=== PATIENT | female | born 1980 | race Caucasian/White ===

== ENCOUNTER 2017-04-15 20:36 | Observation (INO) | payer OTHER ==
[2017-04-15] MEDS ORDERED: ASPIRIN 81 MG PO STA (20:51)
--- NOTE | 2017-04-15 20:58 | ED ---
Chest Pain HPI - General Chief Complaint: Chest Pain Stated Complaint: chest pain Time Seen by Provider: 04/15/17 20:38 Source: EMS Mode of arrival: EMS Limitations: no limitations - History of Present Illness Initial Comments: Patient presents with chest pain. Patient states she feels sharp stabbing intermittent chest pain left-sided chest for the past 12 hours. Patient states symptoms for started after she went outside to smoke. Patient states she is currently in rehab for crack cocaine use. Patient states she last used 6 days ago. Patient has regular tobacco smoker. Patient denies history of hypertension, high cholesterol, diabetes. Patient denies previous history of heart disease. Patient states she has had similar attacks of chest pain over the past 6 months. Patient states she was scheduled to have a stress test 6 months ago but she never went to completed. Has never had a stress test in her life. Patient doesn't have a history of anxiety. Patient states she was started on BuSpar yesterday which she takes ma'am worsened her chest pains. She does admit to history of COPD, not on oxygen. - Related Data Home Medications Medication Instructions Recorded Confirmed Acetaminophen Tab [Tylenol Tab] 650 mg PO Q4H PRN 04/15/17 04/15/17 Aspirin 325 mg PO ONETIME PRN 04/15/17 04/15/17 Chlorpheniramine Maleate 4 mg PO Q4H PRN 04/15/17 04/15/17 Ibuprofen [Motrin] 600 mg PO Q6HR PRN 04/15/17 04/15/17 Multivitamins, Thera [Multivitamin 1 tab PO DAILY 04/15/17 04/15/17 (formulary)] Nicotine 21Mg/24Hr Patch [Habitrol 1 patch TRANSDERM DAILY@0630 04/15/17 21Mg/24Hr Patch] OLANZapine [ZyPREXA] 5 mg PO BID@0630,1730 04/15/17 04/15/17 Thiamine [Vitamin B-1] 100 mg PO DAILY 04/15/17 04/15/17 Topiramate [Topamax] 25 mg PO BID@0600,1730 04/15/17 04/15/17 busPIRone HCl [Buspar] 10 mg PO TID PRN 04/15/17 04/15/17 cloNIDine HCL [Catapres] 0.1 - 0.3 mg PO Q4H PRN 04/15/17 04/15/17 traZODone HCL 50 - 150 mg PO HS 04/15/17 04/15/17 Allergies Allergy/AdvReac Type Severity Reaction Status Date / Time No Known Allergies Allergy Verified 04/15/17 20:58 Review of Systems ROS Statement: Those systems with pertinent positive or pertinent negative responses have been documented in the HPI. ROS Other: All systems not noted in ROS Statement are negative. Constitutional: Denies: fever, chills, weakness Eyes: Denies: vision change ENT: Denies: congestion Respiratory: Denies: cough, dyspnea, wheezes Cardiovascular: Reports: chest pain. Denies: palpitations, dyspnea on exertion , edema, syncope Endocrine: Denies: fatigue Gastrointestinal: Denies: abdominal pain, nausea, vomiting Genitourinary: Denies: urgency, dysuria, frequency, hematuria Musculoskeletal: Denies: back pain Skin: Denies: rash, lesions, change in color Neurological: Denies: headache Psychiatric: Reports: anxiety Past Medical History Past Medical History: COPD History of Any Multi-Drug Resistant Organisms: None Reported Past Surgical History: Adenoidectomy, Tonsillectomy Additional Past Surgical History / Comment(s): foot surgery, Past Psychological History: Anxiety Smoking Status: Current every day smoker Past Alcohol Use History: Heavy Past Drug Use History: Cocaine General Exam - General Exam Comments Initial Comments: Sitting up in bed. No distress. Conversing normally. pleasant. Appears mildly anxious Limitations: no limitations General appearance: alert, in no apparent distress Head exam: Present: atraumatic, normocephalic Eye exam: Present: normal appearance, PERRL, EOMI ENT exam: Present: mucous membranes moist Neck exam: Present: normal inspection Respiratory exam: Present: normal lung sounds bilaterally. Absent: respiratory distress, wheezes, rales, rhonchi, stridor, chest wall tenderness, accessory muscle use, decreased breath sounds, prolonged expiratory Cardiovascular Exam: Present: regular rate, normal rhythm GI/Abdominal exam: Present: soft. Absent: distended, tenderness, guarding, rebound, rigid Extremities exam: Present: other (No gross deformities of the extremities) Back exam: Present: normal inspection Neurological exam: Present: alert, oriented X3 Psychiatric exam: Present: anxious Skin exam: Present: warm, dry, intact, normal color. Absent: rash, cyanosis, diaphoretic, erythema Course Vital Signs 04/15/17 20:39 Temperature 97.7 F Pulse Rate 79 Respiratory 18 Rate Blood Pressure 128/60 O2 Sat by Pulse 97 Oximetry Chest Pain MDM - MDM Aspirin 324 given EKG normal sinus rhythm, heart rate 67, QTc 437 negative Troponin negative Patient reevaluated, chest pain-free. Plan for cardiac observation to trying troponin and possible stress test given patient's risk factors including smoking , repeated episodes of chest pain at rest, history of cocaine use. Spoke with Dr. Oliver, agrees with observation. Will admit observation at this time. Disposition Clinical Impression: Unstable angina Disposition: ADMITTED IP TO THIS HOSP Condition: Good Referrals: None,Stated [Primary Care Provider] - 1-2 days
[2017-04-15 21:19] LABS: Appearance,Urine Clear (Clear); Bilirubin,Urine Negative (Negative); Blood,Urine Negative (Negative); Color,Urine Light Yellow; Glucose,Urine (UA) Negative (Negative); Ketones,Urine Negative (Negative); Leukocyte Esterase,Urine Negative (Negative); Nitrite,Urine Negative (Negative); Protein,Urine Negative (Negative); Specific Gravity,Urine 1.011 (1.001-1.035); Urobilinogen,Urine <2.0 mg/dL (<2.0)
[2017-04-15 21:39] LABS: Basophils % (A) 0 %; Eosinophils # (A) 0.1 k/uL (0-0.7); Eosinophils % (A) 2 %; HGB 12.6 gm/dL (11.4-16.0); Lymphocytes # (A) 2.5 k/uL (1.0-4.8); Lymphocytes % (A) 38 %; MCH 31.4 pg (25.0-35.0); MCHC 34.9 g/dL (31.0-37.0); Mean Platelet Volume 8.8; Monocytes # (A) 0.4 k/uL (0-1.0); Monocytes % (A) 6 %; Neutrophils # (A) 3.3 k/uL (1.3-7.7); Neutrophils % (A) 51 %; Platelet Count 187 k/uL (150-450); RDW 12.2 % (11.5-15.5); WBC 6.4 k/uL (3.8-10.6)
[2017-04-15 21:47] LABS: Anion Gap 8 mmol/L; Blood Urea Nitrogen 13 mg/dL (7-17); Calcium 9.2 mg/dL (8.4-10.2); Carbon Dioxide 27 mmol/L (22-30); Chloride 107 mmol/L (98-107); Glucose 98 mg/dL (74-99); Magnesium 1.7 mg/dL (1.6-2.3); Potassium 3.9 mmol/L (3.5-5.1); Sodium 142 mmol/L (137-145)
--- NOTE | 2017-04-15 21:53 | XR ---
EXAMINATION TYPE: XR chest 2V DATE OF EXAM: 04/15/2017 COMPARISON: NONE HISTORY: Left arm pain and chest numbness TECHNIQUE: Frontal and lateral views of the chest are obtained. FINDINGS: There is no focal air space opacity, pleural effusion, or pneumothorax seen. The cardiac silhouette size is within normal limits. The osseous structures are intact. IMPRESSION: No acute cardiopulmonary process.
[2017-04-15 22:01] LABS: Partial Thromboplastin Time 22.7 sec (22.0-30.0); Prothrombin Time 10.1 sec (9.0-12.0)
[2017-04-15] MEDS ORDERED: NITROGLYCERIN SL TABS 0.4 MG TAB SUBLINGUAL PRN (22:38)
[2017-04-16] MEDS ORDERED: busPIRone HCl 10 MG TAB PO PRN (00:38)
[2017-04-16] MEDS ORDERED: traZODone HCL 50 MG TAB PO SCH (00:45)
[2017-04-16 03:50] LABS: Cholesterol 153 mg/dL (<200); HDL Cholesterol 64 mg/dL (40-60); LDL Cholesterol,Calculated 61 mg/dL (0-99); Triglycerides 138 mg/dL (<150)
[2017-04-16 07:44] VITALS: RESP 16
[2017-04-16] MEDS ORDERED: ASPIRIN 325 MG TAB PO SCH (09:00)
[2017-04-16] MEDS ORDERED: ASPIRIN 81 MG PO SCH (09:00)
[2017-04-16 09:07] VITALS: PULSE 72
[2017-04-16 11:45] VITALS: BP 91/47; TEMP 98.2
--- NOTE | 2017-04-16 13:07 | P.CRDCN ---
History of Present Illness Consult date: 04/16/17 Consult reason: chest pain History of present illness: Mrs. Hammer is a pleasant 37-year-old female past medical history significant for COPD, bipolar, PTSD, chronic tobacco use and cocaine abuse x13 years with last use 6 days ago. She denies history of coronary artery disease and has never seen a painting manager for any reason. We have been asked to see her in consultation for complaints of chest pain. She is currently undergoing rehab treatment to come off of cocaine. Yesterday she went outside to smoke a cigarette and after coming back inside she started to feel tingling in her lips , tight/squeezing sensation in mid-sternal region. She had associated shortness of breath, dizziness, palpitations and diaphoresis. The symptoms lasted about 30 -45 minutes and subsided on its own. Later that evening she was at an NA meeting and she began to again feel the same symptoms. However this second time she started to feel the pain moving over into her left shoulder and down her upper left arm. She states she has had similar symptoms in the past and was advised to undergo stress testing but has never followed up. EKG on arrival reveals sinus mechanism with no acute ST or T-wave abnormalities. Chest xray negative for an acute cardiopulmonary process. Laboratory data reviewed, hemoglobin 12.6, platelets 187, potassium 3.9, magnesium 1.7, creatinine 0.5, cardiac enzymes negative 3, LDL 61. She was started on Catapres while at rehabilitation at night for sleep. She does currently take aspirin 81 mg daily. Review of Systems At the time of my exam: CONSTITUTIONAL: Denies fever. Denies chills. EYES: Denies blurred vision. Denies vision changes. Denies eye pain. EARS, NOSE, MOUTH & THROAT: Denies headache. Denies sore throat. Denies ear pain. CARDIOVASCULAR: Denies chest pain. Denies shortness of breath. Denies orthopnea. Denies PND. Denies palpitations. RESPIRATORY: Denies cough. GASTROINTESTINAL: Denies abdominal pain. Denies diarrhea. Denies constipation. Denies nausea. Denies vomiting. MUSCULOSKELETAL: Denies myalgias. INTEGUMENTARY: Denies pruitis. Denies rash. NEUROLOGIC: Denies numbness. Denies tingling. Denies weakness. PSYCHIATRIC: Denies anxiety. Denies depression. ENDOCRINE: Denies fatigue. Denies weight change. Denies polydipsia. Denies polyurina. GENITOURINARY: Denies burning, hematuria or urgency with micturation. HEMATOLOGIC: Denies history of anemia. Denies bleeding. Past Medical History Past Medical History: COPD History of Any Multi-Drug Resistant Organisms: None Reported Past Surgical History: Adenoidectomy, Tonsillectomy Additional Past Surgical History / Comment(s): foot surgery, Past Anesthesia/Blood Transfusion Reactions: No Reported Reaction Past Psychological History: Anxiety, Bipolar, PTSD Smoking Status: Current every day smoker Past Alcohol Use History: Heavy Additional Past Alcohol Use History / Comment(s): pt is currently in [place] for crack cocaine use Past Drug Use History: Cocaine - Past Family History Mother History Unknown: Yes Father History Unknown: Yes Brother(s) History Unknown: Yes Daughter(s) Family Medical History: No Reported History Son(s) Family Medical History: No Reported History Medications and Allergies Home Medications Medication Instructions Recorded Confirmed Type Chlorpheniramine Maleate 4 mg PO Q4H PRN 04/15/17 04/15/17 History Multivitamins, Thera [Multivitamin 1 tab PO DAILY 04/15/17 04/15/17 History (formulary)] Nicotine 21Mg/24Hr Patch [Habitrol] 1 patch TRANSDERM DAILY@0630 04/15/17 History OLANZapine [ZyPREXA] 5 mg PO BID@0630,1730 04/15/17 04/15/17 History Thiamine [Vitamin B-1] 100 mg PO DAILY 04/15/17 04/15/17 History Topiramate [Topamax] 25 mg PO BID@0600,1730 04/15/17 04/15/17 History busPIRone HCl [Buspar] 10 mg PO TID PRN 04/15/17 04/15/17 History Aspirin 81 mg PO DAILY chew 04/16/17 Rx traZODone HCL [Desyrel] 50 mg PO HS tab 04/16/17 Rx Allergies Allergy/AdvReac Type Severity Reaction Status Date / Time No Known Allergies Allergy Verified 04/16/17 00:03 Physical Exam Vitals: Vital Signs Temp Pulse Pulse Pulse Resp BP BP 04/16/17 07:43 98.1 F 63 16 04/16/17 04:00 97.9 F 72 14 93/51 04/16/17 03:54 18 04/16/17 00:00 18 04/15/17 22:56 98.0 F 69 18 107/62 04/15/17 20:39 97.7 F 79 18 128/60 Pulse Ox 04/16/17 07:43 98 04/16/17 04:00 98 04/16/17 03:54 04/16/17 00:00 04/15/17 22:56 99 04/15/17 20:39 97 Intake and Output 04/15/17 04/16/17 04/16/17 22:59 06:59 14:59 Other: Voiding Method Toilet Weight 48.534 kg 51.1 kg Blood pressure 93/51 heart rate 72 afebrile maintaining oxygen saturation on room air GENERAL: This is a []-year-old [] in no apparent distress at the time of my examination. HEENT: Head is atraumatic, normocephalic. Pupils are equal, round. Sclerae anicteric. Conjunctivae are clear. Mucous membranes of the mouth are moist. Neck is supple. There is no jugular venous distention. No carotid bruit is heard. LUNGS: Clear to auscultation no wheezes, rales or rhonchi. No chest wall tenderness is noted on palpation or with deep breathing. HEART: Regular rate and rhythm without murmurs, rubs or gallops. S1 and S2 heard. ABDOMEN: Soft, nontender. Bowel sounds are heard. No organomegaly noted. EXTREMITIES: No evidence of peripheral edema and no calf tenderness noted. VASCULAR: Radial and dorsalis pedis pulses palpated, no evidence of clubbing. NEUROLOGIC: Patient is awake, alert and oriented x3. Results 04/15/17 21:25 04/15/17 21:25 Cardiac Enzymes 04/15/17 04/16/17 Range/Units 21:25 02:43 Troponin I <0.012 <0.012 (0.000-0.034) ng/mL Coagulation 04/15/17 Range/Units 21:25 PT 10.1 (9.0-12.0) sec APTT 22.7 (22.0-30.0) sec Lipids 04/16/17 Range/Units 02:43 Triglycerides 138 (<150) mg/dL Cholesterol 153 (<200) mg/dL HDL Cholesterol 64 H (40-60) mg/dL CBC 04/15/17 Range/Units 21:25 WBC 6.4 (3.8-10.6) k/uL RBC 4.00 (3.80-5.40) m/uL Hgb 12.6 (11.4-16.0) gm/dL Hct 36.0 (34.0-46.0) % Plt Count 187 (150-450) k/uL Comprehensive Metabolic Panel 04/15/17 Range/Units 21:25 Sodium 142 (137-145) mmol/L Potassium 3.9 (3.5-5.1) mmol/L Chloride 107 (98-107) mmol/L Carbon Dioxide 27 (22-30) mmol/L BUN 13 (7-17) mg/dL Creatinine 0.50 L (0.52-1.04) mg/dL Glucose 98 (74-99) mg/dL Calcium 9.2 (8.4-10.2) mg/dL Current Medications Generic Name Dose Route Start Last Admin Trade Name Freq PRN Reason Stop Dose Admin Aspirin 81 mg 04/16/17 09:00 Aspirin PO DAILY PEDRO Buspirone HCl 10 mg 04/16/17 00:38 Buspar PO TID PRN Anxiety Nitroglycerin 0.4 mg 04/15/17 22:38 Nitrostat SUBLINGUAL Q5M PRN Chest Pain Trazodone HCl 50 mg 04/16/17 00:45 04/16/17 01:15 Desyrel PO 50 mg HS PEDRO Administration Intake and Output 04/15/17 04/16/17 04/16/17 22:59 06:59 14:59 Other: Voiding Method Toilet Weight 48.534 kg 51.1 kg 04/15/17 21:25 04/15/17 21:25 Assessment and Plan Assessment: ASSESSMENT 1. Chest pain, atypical. No EKG evidence of ischemia and negative cardiac enzymes. Possible anxiety reaction. 2. History of long-term crack cocaine use, 13 years. 3. Chronic tobacco use PLAN Obtain 2D echocardiogram and doppler study to assess cardiac structure and function. Perform stress echocardiogram to assess for stress induced ischemia. Recommend smoking and drug cessation. If above diagnostic testing is negative she is stable from a cardiac perspective. Thank you kindly for this consultation. Nurse Practitioner note has been reviewed, I agree with a documented findings and plan of care. Patient was seen and examined.
--- NOTE | 2017-04-16 13:13 | ECHOF ---
Referral Reason:cp MEASUREMENTS -------- HEIGHT: 162.6 cm WEIGHT: 50.8 kg BP: 93/51 RVIDd: 2.4 cm (< 3.3) IVSd: 0.7 cm (0.6 - 1.1) LVIDd: 4.5 cm (3.9 - 5.3) LVPWd: 1.0 cm (0.6 - 1.1) IVSs: 1.2 cm LVIDs: 2.9 cm LVPWs: 1.3 cm LAESV Index (A-L): 19.09 ml/m Ao Diam: 2.8 cm (2.0 - 3.7) AV Cusp: 2.1 cm (1.5 - 2.6) LA Diam: 2.5 cm (2.7 - 3.8) EPSS: 0.3 cm MV E Christ: 1.02 m/s MV DecT: 269 ms MV A Christ: 0.53 m/s MV E/A Ratio: 1.93 RAP: 5.00 mmHg RVSP: 9.80 mmHg MV EF SLOPE: 131.88 mm/s (70 - 150) MV EXCURSION: 2.25 cm (> 18.000) FINDINGS -------- Sinus rhythm. This was a technically good study. The left ventricular size is normal. Left ventricular wall thickness is normal. Overall left vent ricular systolic function is normal with, an EF between 55 - 60 %. The right ventricle is normal in size and function. Normal LA size by volume 22+/-6 ml/m2. The right atrium is normal in size. The aortic valve is trileaflet, and appears structurally normal. No aortic stenosis or regurgitation. The mitral valve is normal. There is trace mitral regurgitation. Trace tricuspid regurgitation present. Right ventricular systolic pressure is normal at < 35 mmHg. There is no evidence of pulmonary hypertension. The pulmonic valve is normal. The aortic root size is normal. Normal inferior vena cava with normal inspiratory collapse consistent with estimated right atrial pre ssure of 5 mmHg. The pericardium is normal. There is no pericardial effusion. CONCLUSIONS -------- 1. Sinus rhythm. 2. This was a technically good study. 3. The left ventricular size is normal. 4. Left ventricular wall thickness is normal. 5. Overall left ventricular systolic function is normal with, an EF between 55 - 60 %. 6. Normal LA size by volume 22+/-6 ml/m2. 7. The aortic valve is trileaflet, and appears structurally normal. No aortic stenosis or regurgitati on. 8. There is trace mitral regurgitation. 9. Trace tricuspid regurgitation present. 10. Right ventricular systolic pressure is normal at < 35 mmHg. 11. There is no evidence of pulmonary hypertension. 12. The aortic root size is normal. 13. There is no pericardial effusion. CODING CLERKS SUPERVISOR: Bandar Junior RDCS
--- NOTE | 2017-04-16 21:48 | HP ---
HISTORY AND PHYSICAL This is a combination history and physical and discharge summary. HISTORY AND PHYSICAL/DISCHARGE SUMMARY: CHIEF COMPLAINT: Chest pain. HISTORY OF PRESENT ILLNESS: This 37-year-old woman with a past medical history of multiple medical problems , COPD, history of polysubstance abuse, anxiety, bipolar, PTSD, being followed by primary care physician in [place] was in [facility] for alcohol and cocaine. The last visit was days ago. The patient is complaining of chest pain which is mostly in the left side of the chest which shows heavy in character and the patient had also some intermittent stabbing. The patient had similar pain about 6 months before and the patient came to [facility] and was admitted for further evaluation and treatment. Cardiology saw the patient during hospitalization. The EKG showed ST-T changes and troponins are negative and 2D echo showed ejection fraction about 50 -60% and the patient also had a stress test by Cardiology. Apparently the stress test was negative and the patient will be transferred back to [facility] at this time. Official report pending at this time. There is no history of fever, rigors or chills. No history of headache, loss of consciousness, seizures. PAST MEDICAL HISTORY: Adenoidectomy, tonsillectomy, COPD, polysubstance abuse, history of anxiety, depression, PTSD. MEDICATIONS ARE: Home medication: 1. Buspar 10 mg t.i.d. p.r.n. 2. Topamax 25 mg b.i.d. p.r.n. 3. Vitamin B 100 mg. 4. Zyprexa 5 mg p.o. b.i.d. 5. Habitrol 21. 6. Multivitamins 1 p.o. daily. 8. Desyrel 50 mg. 9. Aspirin 81 mg daily. ALLERGIES: None. FAMILY HISTORY: No history of heart disease or strokes in the family. SOCIAL HISTORY: History of smoking and substance abuse with cocaine and alcohol. REVIEW OF SYSTEMS: ENT: No diminished vision, no diminished hearing. Cardiovascular system as mentioned earlier. Respiration as mentioned earlier. GI no nausea or vomiting. no dysuria. Nervous system: No numbness, weakness. Allergy/Immunology: No asthma or hayfever. Musculoskeletal as mentioned earlier. Hematology/Oncology: No history of anemia. Endocrine: No history of diabetes, hypothyroidism. Constitutional: As mentioned earlier. Dermatology: Negative. Rheumatology: Negative. Psychiatric: As mentioned earlier. PHYSICAL EXAMINATION: Alert and oriented times three. Pulse is 72, blood pressure 91/47, respiratory rate 16, temperature 98.2, pulse ox 98% on room air. HEENT: Conjunctivae normal. Oral mucosa moist. Neck is no jugular venous distention. No carotid bruit. No lymph node enlargement. Cardiovascular S1, S2. No S3, no S4. Respiratory: Breath sounds diminished in the bases. No rhonchi. No crackles. ABDOMEN: Soft, nontender. No mass palpable. Legs: No edema and no swelling. NERVOUS SYSTEM: Higher functions as mentioned earlier, moves all 4 limbs, no focal motor deficits. Lymphatics: No lymph nodes palpable in the neck, axillae or groin. Skin no ulcers, rashes or bleeding. LABS: CBC within normal limits. The creatinine 0.5, HDL 64. ASSESSMENT: 1. Chest pain, possibly musculoskeletal with negative stress test. 2. History of polysubstance abuse including alcohol and cocaine. 3. History of nicotine dependence. 4. History of chronic obstructive pulmonary disease. 5. History of adenoidectomy. 6. History of anxiety, bipolar, PTSD. RECOMMENDATIONS AND DISCUSSION: In this 37-year-old woman who presented with multiple complex medical issues. At this time I recommend the patient be discharged and taken to [facility]. Otherwise please continue the rest of the medications. The chest pain is noncardiac and sepsis is negative. Prognosis guarded. Further recommendations to follow. Recommend close follow up with the primary physician and cardiology in the outpatient setting. MMGASPERL / JOHNN: [id number] / TIKA
--- NOTE | 2017-04-17 12:51 | P.STRESS ---
- Stress Test Note Stress Test Results/Findings: Exam Performed: stress echo exercise Exam Date: 04/16/17 Reason for Exam: unstable angina Height: 5 ft 4 in Weight: 51.1 kg Protocol: bhanu Stage: 4 Duration of Exercise: 12 min Resting Heart Rate: 68 Resting Blood Pressure: 147/63 Maximum Achieved Heart Rate: 142 Maximum Achieved Blood Pressure: 202/120 85% PMHR: 154 100% PMHR: 181 METS: 12.1 Technologist Comment: Stress Test Results/Findings: This is a 37-year-old female with history of smoking being evaluated for cardiac status. Baseline EKG showed sinus rhythm with mild GA and QRS duration. Blood pressure at rest is 147/63, pulse rate of 60. Patient walked on the Bhanu protocol for 12 minutes achieving a maximal rate of 142 with a blood pressure of 202/120. EKGs taken during and after exercise did not reveal any changes to suggest ischemia. The Echo data: Baseline echo images show normal wall motion and thickening. Exercise echo imaging showed augmentation of wall motion and thickening in all segments. Final impression: #1. Negative stress test #2. Negative stress echo.
--- NOTE | 2017-04-17 13:30 | ECHOS ---
- Stress Test Note Stress Test Results/Findings: Exam Performed: stress echo exercise Exam Date: 04/16/17 Reason for Exam: unstable angina Height: 5 ft 4 in Weight: 51.1 kg Protocol: bhanu Stage: 4 Duration of Exercise: 12 min Resting Heart Rate: 68 Resting Blood Pressure: 147/63 Maximum Achieved Heart Rate: 142 Maximum Achieved Blood Pressure: 202/120 85% PMHR: 154 100% PMHR: 181 METS: 12.1 Technologist Comment: Stress Test Results/Findings: This is a 37-year-old female with history of smoking being evaluated for cardiac status. Baseline EKG showed sinus rhythm with mild CO and QRS duration. Blood pressure at rest is 147/63, pulse rate of 60. Patient walked on the Bhanu protocol for 12 minutes achieving a maximal rate of 142 with a blood pressure of 202/120. EKGs taken during and after exercise did not reveal any changes to suggest ischemia. The Echo data: Baseline echo images show normal wall motion and thickening. Exercise echo imaging showed augmentation of wall motion and thickening in all segments. Final impression: #1. Negative stress test #2. Negative stress echo. TIKA
== END 2017-04-16 14:59 | disposition home or self-care (01) ==
LOC: EC 20:36 → 3OBS 22:38
PROVIDERS: ADMIT Hospitalist; ATTEND Hospitalist
DX: R07.89 Other chest pain (principal); R20.2 Paresthesia of skin; R06.02 Shortness of breath; R42 Dizziness and giddiness; R00.2 Palpitations; R61 Generalized hyperhidrosis; J44.9 Chronic obstructive pulmonary disease, unspecified; F10.10 Alcohol abuse, uncomplicated; F14.10 Cocaine abuse, uncomplicated; F19.10 Other psychoactive substance abuse, uncomplicated; F17.210 Nicotine dependence, cigarettes, uncomplicated; F41.9 Anxiety disorder, unspecified; F31.9 Bipolar disorder, unspecified; F43.12 Post-traumatic stress disorder, chronic; Z79.899 Other long term (current) drug therapy; Z79.82 Long term (current) use of aspirin
CPT/HCPCS: 99285 ×2; 36415; 93005; 93017; 93306; 93350; 80061; 80048; 83735; 84484 ×2; 85025; 85610; 85730; 81003; 81025; 71046; G0378 ×2